=== PATIENT | female | born 1980 | race Caucasian/White ===

== ENCOUNTER 2019-03-20 14:49 | Inpatient (IN) ==
[2019-03-20] MEDS ORDERED: OXYTOCIN 30 UNITS/500 ML BAG IV PRN (15:05)
[2019-03-20 15:30] LABS: Hematocrit (blood only) 36.8 % (37-47); Hemoglobin 12.3 g/dL (12.0-16.0); Mean Corpuscular Hemoglobin 31.8 pg (25-34); Mean Corpuscular Volume 95.1 fL (80-100); Mean Platelet Volume 10.4 fL (7.4-10.4); Platelet Count 242 K/uL (130-400); RDW Coefficient of Variation 14.2 % (11.5-14.5); RDW Standard Deviation 48.9 fL (36.4-46.3); Red Blood Count 3.87 M/uL (4.2-5.4); White Blood Count 14.48 K/uL (4.8-10.8)
[2019-03-20 16:18] LABS: Mean Corpuscular Hgb Conc 33.4 g/dL (32-36)
--- NOTE | 2019-03-20 19:16 | Labor Progress Brief Note ---
Date of Service March 20, 2019 Patient still not overly uncomfortable. She does not wish intervention at this time. More likely in latent phase labor right now, but CTX seem to be worsening, so will admit. Results & Data Vital Signs (Past 12 Hours) Vital Signs Temp Pulse Resp BP 03/20/19 18:45 20 03/20/19 17:15 18 03/20/19 15:30 20 03/20/19 15:11 98.1 F 20 03/20/19 14:55 118 H 125/85
--- NOTE | 2019-03-20 21:27 | Labor Progress Brief Note ---
Date of Service March 20, 2019 Contractions have not really increased even spaced a bit. Cx remains at 4cm, membranes intact. I am not convinced she is really in active labor at this time yet. I have offered her: 1. Home and come back when CTX stronger. 2. Stay here with the idea she is currently in latent phase labor, possibly progressing to active labor. She prefers no intervention at this time. Wishes to stay at this time. Results & Data Vital Signs (Past 12 Hours) Vital Signs Temp Pulse Resp BP Pulse Ox 03/20/19 21:00 20 03/20/19 20:58 122 H 98 03/20/19 20:53 122 H 98 03/20/19 20:48 124 H 97 03/20/19 20:43 124 H 98 03/20/19 20:38 118 H 98 03/20/19 20:30 22 03/20/19 20:15 20 03/20/19 19:55 120 H 120/72 03/20/19 19:45 97.7 F 03/20/19 18:45 20 03/20/19 17:15 18 03/20/19 15:30 20 03/20/19 15:11 98.1 F 20 03/20/19 14:55 118 H 125/85
[2019-03-21] MEDS: LACTATED RINGER'S 1,000 ML IV PRN ×4 (05:33→16:56)
[2019-03-21] MEDS ORDERED: BUPIVACAINE 0.25% 30 ML VIAL ONE ×2 (05:49→13:48)
[2019-03-21] MEDS ORDERED: ePHEDrine sulfate 50 MG/ML AMP ONE (05:49)
[2019-03-21] MEDS ORDERED: fentaNYL 2MCG/ML ROPIV 1.25MG/ML 100 ML BAG EPI ONE (05:49)
[2019-03-21] MEDS ORDERED: fentaNYL citrate 100 MCG/2 ML VIAL ONE ×2 (05:49→13:48)
[2019-03-21] MEDS ORDERED: ePHEDrine sulfate 50 MG/ML AMP IV PRN (06:35)
[2019-03-21] MEDS ORDERED: NALBUPHINE HCL INJ 10 MG/ML AMP IV PRN (06:35)
[2019-03-21] MEDS ORDERED: DiphenhydrAMINE HCL 50 MG/ML VIAL IV PRN (06:35)
[2019-03-21] MEDS ORDERED: NALOXONE HCL 0.4 MG/1 ML VIAL/CARP IV PRN (06:35)
[2019-03-21] MEDS ORDERED: PROMETHAZINE HCL 6.25 MG in SODIUM CHLORIDE 0.9% 50 ML IV PRN (06:35)
[2019-03-21] MEDS ORDERED: NALOXONE HCL 1 MG in SODIUM CHLORIDE 0.9% 1000ML 1,000 ML IV PRN (06:35)
[2019-03-21] MEDS ORDERED: ONDANSETRON INJ 2 MG/ML 2 ML VIAL IV PRN (06:35)
--- NOTE | 2019-03-21 06:41 | Anesthesiology Consultation ---
Date of Service March 21, 2019 Assessment & Plan (1) Encounter for pre-operative examination: Chart Review Chart Review: Patient NOT seen in Pre Admission Testing and Acceptable Risk for Labor Epidural Consults Requested none ASA ASA2 Proposed Anesthesia Anesthesia Type: Labor Epidural Risk / Benefits Reviewed With: PT / POA / Parent / Guardian, Accepts Plan and Informed Consent Obtained History Height/Weight Height: 5 ft 3 in Weight: 92.079 kg Allergies Allergy/AdvReac Type Severity Reaction Status Date / Time codeine Allergy Verified 03/20/19 14:04 Penicillins Allergy Verified 03/20/19 14:04 Medications Home Medications Medication Instructions Recorded Confirmed Last Taken ferrous sulfate 140 mg PO DAILY 03/20/19 03/20/19 1 Day Ago ~03/19/19 vit-iron fum-folic ac 1 tab PO DAILY 03/20/19 03/20/19 1 Day Ago [ Vitamin] ~03/19/19 Active Medications Generic Name Dose Route Start Last Admin Trade Name Freq PRN Reason Stop Dose Admin Lactated Ringer's 1,000 mls @ 125 mls/hr 03/20/19 15:05 03/21/19 06:35 Lr IV 03/22/19 15:04 125 mls/hr .Q8H PRN Infusion L&D Protocol Protocol NPO Date Last Intake of Fluids: 03/21/19 Time Last Intake of Fluids: 06:00 Date Last Intake of Solids: 03/20/19 Time Last Intake of Solids: 17:00 Past Medical History Medical History Varicella Exercise / Class Metabolic Activity II 4-5 Yardwork/Stairs/Walk up hill Past Family History Family History Mother Depression Dyslipidemia Father AA (alcohol abuse) Grandfather Colorectal cancer Parkinsons Dementia Sister Multiple gestation Past Surgical History Surgical History H/O exploratory laparotomy History of carpal tunnel surgery Gans teeth extracted Past Anesthesia History No Hx of Anesthesia Complications and No Family Hx of Anesthesia Complications History of PONV No Hx of PONV and No Hx of Motion Sickness Social History Smoking Status: Never smoker Hx Alcohol Use: Yes Hx Substance Use: No substance use type: does not use Physical Exam Vital Signs Last Vital Signs Temp 36.7 C 03/21/19 02:57 Pulse 100 H 03/21/19 06:39 Resp 16 03/21/19 06:36 BP 105/58 L 03/21/19 06:39 Pulse Ox 98 03/21/19 06:37 ENMT Mouth: no dentition abnormality Thyromental Distance: > or= 3.5 Finger Breadths Mallampati Class: II Neck normal visual inspection Respiratory normal respiratory effort Auscultation: lungs clear to auscultation bilaterally Cardiovascular Rate/Rhythm: regular rate and regular rhythm Psychiatric Orientation: alert Testing Laboratory Results 03/20/19 15:18
--- NOTE | 2019-03-21 07:58 | Labor Progress Brief Note ---
Date of Service March 21, 2019 Patient progressed to being painful enough that she requested epidural. FHR category 1. AROM for clearish fluid.Cx 4cm, 90%, -1 Start pitocin if CTX don't improve further Results & Data Vital Signs (Past 12 Hours) Vital Signs Temp Pulse Resp BP Pulse Ox 03/21/19 07:52 115 H 99 03/21/19 07:49 113 H 113/68 03/21/19 07:47 124 H 100 03/21/19 07:44 125 H 107/59 L 03/21/19 07:43 114 H 94 03/21/19 07:42 119 H 97 03/21/19 07:40 111 H 112/65 03/21/19 07:38 118 H 94 03/21/19 07:37 117 H 95 03/21/19 07:34 116 H 116/65 03/21/19 07:32 114 H 95 03/21/19 07:29 117 H 20 112/61 03/21/19 07:27 115 H 95 03/21/19 07:24 118 H 116/60 03/21/19 07:22 120 H 98 03/21/19 07:19 112 H 120/66 03/21/19 07:17 121 H 100 03/21/19 07:15 116 H 118/69 03/21/19 07:12 109 H 98 03/21/19 07:09 130 H 94/60 L 03/21/19 07:07 121 H 99 03/21/19 07:04 97.7 F 123 H 18 99/54 L 03/21/19 07:02 111 H 98 03/21/19 06:59 114 H 98/54 L 03/21/19 06:57 107 H 97 03/21/19 06:56 113 H 106/60 03/21/19 06:52 140 H 100 03/21/19 06:50 115 H 105/57 L 03/21/19 06:47 123 H 98 03/21/19 06:45 113 H 16 109/76 03/21/19 06:42 118 H 99 03/21/19 06:39 100 H 105/58 L 03/21/19 06:37 118 H 98 03/21/19 06:36 116 H 16 103/58 L 03/21/19 06:33 111 H 97/55 L 03/21/19 06:32 117 H 99 03/21/19 06:30 109 H 16 108/53 L 03/21/19 06:27 116 H 101/54 L 98 03/21/19 06:24 102 H 18 126/66 03/21/19 06:22 117 H 98 03/21/19 06:17 106 H 99 03/21/19 06:12 114 H 98 03/21/19 06:07 112 H 98 03/21/19 06:02 119 H 99 03/21/19 05:46 102 H 99 03/21/19 05:43 103 H 104/58 L 03/21/19 05:41 98 H 99 03/21/19 05:39 118 H 81 L 03/21/19 04:33 132 H 79 L 03/21/19 02:59 102 H 103/62 03/21/19 02:57 98.1 F 16 03/20/19 22:51 98.1 F 99 H 16 110/60 03/20/19 21:30 18 03/20/19 21:00 20 03/20/19 20:58 122 H 98 03/20/19 20:53 122 H 98 03/20/19 20:48 124 H 97 03/20/19 20:43 124 H 98 03/20/19 20:38 118 H 98 03/20/19 20:30 22 03/20/19 20:15 20 03/20/19 19:55 120 H 120/72
[2019-03-21] MEDS ORDERED: OXYTOCIN 30 UNITS/500 ML BAG IV PRN ×2 (08:47→21:00)
--- NOTE | 2019-03-21 08:52 | Labor Progress Brief Note ---
Date of Service March 21, 2019 Subjective Reason For Note: Routine Evaluation Comfortable with Epidural. Discussed contraction pattern still fairly far apart after AROM, and discussed use of pitocin. Patient agreeable. Assessment & Plan (1) Supervision of elderly primigravida: Patient admitted yesterday in early labor but has had very slow progress, declined interventions yesterday. Now has epidural, accepted AROM, and accepts pitocin. Order placed and RN aware. Trimester: third trimester Qualified Code(s): O09.513 - Supervision of elderly primigravida, third trimester Present on Admission?: Yes Physical Exam Physical Exam: FHT Cat 1 with early decels noted at each contraction since AROM. [place] Q5-6. Cervix per prior MD still 4cm. Results & Data Vital Signs (Past 12 Hours) Vital Signs Temp Pulse Resp BP Pulse Ox 03/21/19 08:47 127 H 99 03/21/19 08:44 118 H 110/72 03/21/19 08:42 118 H 100 03/21/19 08:41 111 H 106/72 03/21/19 08:37 118 H 97 03/21/19 08:35 115 H 106/69 03/21/19 08:33 120 H 91 03/21/19 08:32 122 H 100 03/21/19 08:29 113 H 120/75 03/21/19 08:27 118 H 100 03/21/19 08:25 106 H 111/74 03/21/19 08:22 110 H 100 03/21/19 08:19 107 H 110/71 93 03/21/19 08:17 111 H 100 03/21/19 08:14 112 H 109/70 03/21/19 08:12 112 H 100 03/21/19 08:11 112 H 116/73 03/21/19 08:07 122 H 100 03/21/19 08:04 116 H 110/69 03/21/19 08:02 105 H 100 03/21/19 07:59 126 H 105/67 03/21/19 07:57 126 H 100 03/21/19 07:55 125 H 131/70 03/21/19 07:52 115 H 99 03/21/19 07:49 113 H 113/68 03/21/19 07:47 98.1 F 124 H 16 100 03/21/19 07:44 125 H 107/59 L 11/26/19 07:43 114 H 94 03/21/19 07:42 119 H 97 03/21/19 07:40 111 H 112/65 03/21/19 07:38 118 H 94 03/21/19 07:37 117 H 95 03/21/19 07:34 116 H 116/65 03/21/19 07:32 114 H 95 03/21/19 07:29 117 H 20 112/61 03/21/19 07:27 115 H 95 03/21/19 07:24 118 H 116/60 03/21/19 07:22 120 H 98 03/21/19 07:19 112 H 120/66 03/21/19 07:17 121 H 100 03/21/19 07:15 116 H 118/69 03/21/19 07:12 109 H 98 03/21/19 07:09 130 H 94/60 L 03/21/19 07:07 121 H 99 03/21/19 07:04 97.7 F 123 H 18 99/54 L 03/21/19 07:02 111 H 98 03/21/19 06:59 114 H 98/54 L 03/21/19 06:57 107 H 97 03/21/19 06:56 113 H 106/60 03/21/19 06:52 140 H 100 03/21/19 06:50 115 H 105/57 L 03/21/19 06:47 123 H 98 03/21/19 06:45 113 H 16 109/76 03/21/19 06:42 118 H 99 03/21/19 06:39 100 H 105/58 L 03/21/19 06:37 118 H 98 03/21/19 06:36 116 H 16 103/58 L 03/21/19 06:33 111 H 97/55 L 03/21/19 06:32 117 H 99 03/21/19 06:30 109 H 16 108/53 L 03/21/19 06:27 116 H 101/54 L 98 03/21/19 06:24 102 H 18 126/66 03/21/19 06:22 117 H 98 03/21/19 06:17 106 H 99 03/21/19 06:12 114 H 98 03/21/19 06:07 112 H 98 03/21/19 06:02 119 H 99 03/21/19 05:46 102 H 99 03/21/19 05:43 103 H 104/58 L 03/21/19 05:41 98 H 99 03/21/19 05:39 118 H 81 L 03/21/19 04:33 132 H 79 L 03/21/19 02:59 102 H 103/62 03/21/19 02:57 98.1 F 16 03/20/19 22:51 98.1 F 99 H 16 110/60 03/20/19 21:30 18 03/20/19 21:00 20 03/20/19 20:58 122 H 98 03/20/19 20:53 122 H 98
[2019-03-21] MEDS: fentaNYL 2MCG/ML ROPIV 1.25MG/ML 100 ML BAG EPI PRN ×2 (12:38→18:15)
--- NOTE | 2019-03-21 17:57 | Labor Progress Brief Note ---
Date of Service March 21, 2019 Subjective Very uncomfortable with contractions causing low back/pelvic pain and urge to push. Assessment & Plan (1) Supervision of elderly primigravida: Labor continues, with augmentation. Has been at 9+ cm for several hours. No labial edema, but I shared my concern at this point for CPD given the slow progress and failure to reach complete dilation. IUPC placed to see if MVU need to be increased, but initial impression is that we are likely adequate based on first few contractions being 50 MVU each. Patient will sit more upright and see if can help the anterior lip go away. She does not want to change plan to CSec at this time. Trimester: third trimester Qualified Code(s): O09.513 - Supervision of elderly primigravida, third trimester Physical Exam Physical Exam: Cervix with wisp of anterior lip at 12-3 o'clock and posterior at 6 o'clock as well. Vertex feels round, no molding or caput, and OA. FHT Cat 1 [place] Q2-5 irregular at times. Continues to have maternal tachycardia throughout whole admission, felt to be related to bronchitis patient had prior to admission. She is not SOB, sats are good, no chest pain. Tried two test-pushes to see if patient could push vertex past lip, and though she can push past it, cervix immediately falls forward once push effort ceases. IUPC placed after patient consented for same. Results & Data Vital Signs (Past 12 Hours) Vital Signs Temp Pulse Resp BP Pulse Ox 03/21/19 17:47 130 H 100 03/21/19 17:42 127 H 100 03/21/19 17:41 116 H 112/68 03/21/19 17:37 144 H 98 03/21/19 17:32 125 H 100 03/21/19 17:28 111 H 89 L 03/21/19 17:27 115 H 100 03/21/19 17:25 105 H 108/60 03/21/19 17:22 118 H 100 03/21/19 17:17 113 H 100 03/21/19 17:12 105 H 100 03/21/19 17:11 111 H 112/64 03/21/19 17:07 113 H 98 03/21/19 17:02 111 H 100 03/21/19 16:57 113 H 100 03/21/19 16:56 118 H 100/57 L 03/21/19 16:52 117 H 100 03/21/19 16:47 115 H 100 03/21/19 16:42 116 H 100 03/21/19 16:41 113 H 107/55 L 03/21/19 16:37 131 H 100 03/21/19 16:32 125 H 100 03/21/19 16:30 20 03/21/19 16:27 124 H 100 03/21/19 16:26 129 H 124/75 03/21/19 16:22 124 H 100 03/21/19 16:17 125 H 100 03/21/19 16:12 122 H 98 03/21/19 16:11 123 H 121/66 03/21/19 16:07 121 H 99 03/21/19 16:02 123 H 100 03/21/19 15:57 123 H 100 03/21/19 15:56 111 H 135/68 03/21/19 15:52 119 H 100 03/21/19 15:47 120 H 100 03/21/19 15:42 113 H 120/66 100 03/21/19 15:37 121 H 97 03/21/19 15:32 116 H 95 03/21/19 15:30 20 03/21/19 15:27 115 H 96 03/21/19 15:26 117 H 105/57 L 03/21/19 15:22 115 H 96 03/21/19 15:17 120 H 97 03/21/19 15:12 114 H 97 03/21/19 15:10 116 H 99/55 L 03/21/19 15:07 106 H 98 03/21/19 15:02 111 H 99 03/21/19 14:58 97.9 F 20 03/21/19 14:57 118 H 99 03/21/19 14:55 127 H 102/65 03/21/19 14:52 124 H 100 03/21/19 14:50 127 H 107/66 03/21/19 14:47 137 H 99 03/21/19 14:42 135 H 113/61 99 03/21/19 14:37 112 H 98 03/21/19 14:32 120 H 98 03/21/19 14:27 120 H 111/68 98 03/21/19 14:22 124 H 100 03/21/19 14:17 122 H 100 03/21/19 14:12 121 H 100 03/21/19 14:10 118 H 18 118/59 L 03/21/19 14:07 135 H 100 03/21/19 14:02 121 H 100 03/21/19 13:57 124 H 100 03/21/19 13:56 114 H 106/64 03/21/19 13:52 119 H 100 03/21/19 13:47 125 H 100 03/21/19 13:42 119 H 100 03/21/19 13:40 111 H 120/75 03/21/19 13:37 128 H 100 03/21/19 13:32 127 H 100 03/21/19 13:27 124 H 100 03/21/19 13:25 125 H 116/54 L 03/21/19 13:22 127 H 100 03/21/19 13:17 128 H 100 03/21/19 13:13 126 H 135/79 03/21/19 13:12 123 H 98 03/21/19 13:07 111 H 100 03/21/19 13:02 114 H 100 03/21/19 12:57 118 H 130/58 L 100 03/21/19 12:52 121 H 100 03/21/19 12:48 97.9 F 16 03/21/19 12:47 123 H 99 03/21/19 12:42 94 H 108/59 L 100 03/21/19 12:37 102 H 100 03/21/19 12:32 109 H 100 03/21/19 12:27 103 H 100 03/21/19 12:25 107 H 109/61 03/21/19 12:22 97 H 100 03/21/19 12:17 120 H 100 03/21/19 12:12 93 H 99 03/21/19 12:11 106 H 108/56 L 03/21/19 12:07 89 99 03/21/19 12:02 104 H 98 03/21/19 11:57 116 H 98 03/21/19 11:56 110 H 20 111/58 L 03/21/19 11:52 104 H 99 03/21/19 11:47 129 H 98 03/21/19 11:42 120 H 98 03/21/19 11:41 104 H 109/55 L 03/21/19 11:37 107 H 97 03/21/19 11:32 109 H 97 03/21/19 11:30 18 03/21/19 11:27 96 H 97 03/21/19 11:25 117 H 95/57 L 03/21/19 11:22 100 H 98 03/21/19 11:17 120 H 97 03/21/19 11:12 106 H 98 03/21/19 11:10 114 H 92/55 L 03/21/19 11:07 114 H 98 03/21/19 11:02 115 H 96 03/21/19 11:00 98.1 F 20 03/21/19 10:57 122 H 98 03/21/19 10:55 121 H 110/68 03/21/19 10:52 116 H 100 03/21/19 10:47 132 H 99 03/21/19 10:42 114 H 100 03/21/19 10:41 129 H 126/67 03/21/19 10:37 136 H 100 03/21/19 10:32 116 H 99 03/21/19 10:27 120 H 100 03/21/19 10:26 125 H 20 112/66 03/21/19 10:23 18 03/21/19 10:22 133 H 100 03/21/19 10:17 123 H 100 03/21/19 10:12 120 H 100 03/21/19 10:11 129 H 120/70 03/21/19 10:07 124 H 100 03/21/19 10:02 107 H 100 03/21/19 09:57 127 H 100 03/21/19 09:56 117 H 118/56 L 03/21/19 09:52 115 H 100 03/21/19 09:47 109 H 100 03/21/19 09:42 105 H 100 03/21/19 09:41 97.7 F 93 H 20 105/57 L 03/21/19 09:37 100 H 100 03/21/19 09:32 103 H 99 03/21/19 09:30 20 03/21/19 09:27 100 H 99 03/21/19 09:25 109 H 127/91 03/21/19 09:22 95 H 99 03/21/19 09:19 110 H 91/53 L 03/21/19 09:17 108 H 99 03/21/19 09:15 106 H 100/61 11/26/19 09:12 99 H 100 03/21/19 09:09 109 H 114/70 03/21/19 09:07 104 H 100 03/21/19 09:04 111 H 110/69 03/21/19 09:02 98 H 99 03/21/19 08:59 116 H 20 110/68 03/21/19 08:57 114 H 99 03/21/19 08:54 121 H 107/70 03/21/19 08:52 121 H 97 03/21/19 08:49 120 H 110/72 03/21/19 08:47 127 H 99 03/21/19 08:44 118 H 110/72 03/21/19 08:42 118 H 100 03/21/19 08:41 111 H 106/72 03/21/19 08:37 118 H 97 03/21/19 08:35 115 H 106/69 03/21/19 08:33 120 H 91 03/21/19 08:32 122 H 100 03/21/19 08:29 113 H 20 120/75 03/21/19 08:27 118 H 100 03/21/19 08:25 106 H 111/74 03/21/19 08:22 110 H 100 03/21/19 08:19 107 H 110/71 93 03/21/19 08:17 111 H 100 03/21/19 08:14 112 H 109/70 03/21/19 08:12 112 H 100 03/21/19 08:11 112 H 116/73 03/21/19 08:07 122 H 100 03/21/19 08:04 116 H 18 110/69 03/21/19 08:02 105 H 100 03/21/19 07:59 126 H 105/67 03/21/19 07:57 126 H 100 03/21/19 07:55 125 H 131/70 03/21/19 07:52 115 H 99 03/21/19 07:49 113 H 113/68 03/21/19 07:47 98.1 F 124 H 16 100 03/21/19 07:44 125 H 107/59 L 03/21/19 07:43 114 H 94 03/21/19 07:42 119 H 97 03/21/19 07:40 111 H 112/65 03/21/19 07:38 118 H 94 03/21/19 07:37 117 H 95 03/21/19 07:34 116 H 116/65 03/21/19 07:32 114 H 95 03/21/19 07:29 117 H 20 112/61 03/21/19 07:27 115 H 95 03/21/19 07:24 118 H 116/60 03/21/19 07:22 120 H 98 03/21/19 07:19 112 H 120/66 03/21/19 07:17 121 H 100 03/21/19 07:15 116 H 118/69 03/21/19 07:12 109 H 98 03/21/19 07:09 130 H 94/60 L 03/21/19 07:07 121 H 99 03/21/19 07:04 97.7 F 123 H 18 99/54 L 03/21/19 07:02 111 H 98 03/21/19 06:59 114 H 98/54 L 03/21/19 06:57 107 H 97 03/21/19 06:56 113 H 106/60 03/21/19 06:52 140 H 100 03/21/19 06:50 115 H 105/57 L 03/21/19 06:47 123 H 98 03/21/19 06:45 113 H 16 109/76 03/21/19 06:42 118 H 99 03/21/19 06:39 100 H 105/58 L 03/21/19 06:37 118 H 98 03/21/19 06:36 116 H 16 103/58 L 03/21/19 06:33 111 H 97/55 L 03/21/19 06:32 117 H 99 03/21/19 06:30 109 H 16 108/53 L 03/21/19 06:27 116 H 101/54 L 98 03/21/19 06:24 102 H 18 126/66 03/21/19 06:22 117 H 98 03/21/19 06:17 106 H 99 03/21/19 06:12 114 H 98 03/21/19 06:07 112 H 98 03/21/19 06:02 119 H 99
[2019-03-21] MEDS ORDERED: Nursing to Pharmacy Communication ONE (18:23)
--- NOTE | 2019-03-21 20:52 | Delivery Summary ---
Vaginal Delivery Summary Date of Service March 21, 2019 Vaginal Delivery Summary DIAGNOSES: 1. [place] intrauterine at 39w3d gestation. 2. Spontaneous onset of labor. 3. Group B Streptococcus Neg. PROCEDURE: Spontaneous vaginal delivery. SURGEON: Wendy Gallardo MD. MANAGER ADULT: None. ESTIMATED BLOOD LOSS: 350 mL. COMPLICATIONS: None. PLACENTA: Spontaneous and intact with a 3-vessel cord. DISPOSITION: Stable to labor and delivery. DESCRIPTION: The patient pushed well and brought the head to in OA position. The 's head was allowed to deliver with contraction force and no further active pushing, with the perineum protected during this time. The shoulders delivered easily with a maternal pushing effort. There was no nuchal cord. The shoulders and body delivered without any difficulty, and the infant was placed on the maternal abdomen. It was vigorous and moving all extremities, and making respiratory efforts. The cord was doubly clamped by the MD and then cut. The placenta delivered spontaneously and was noted to be intact and with a 3VC. The cervix, vagina and perineum were examined and were found to be without defect requiring repair. The fundus was firm and lochia minimal immediately after delivery.
[2019-03-21] MEDS ORDERED: SUPERCREAM 0.870% 15 GM JAR EXT PRN (21:00)
[2019-03-21] MEDS ORDERED: DIPHTHERIA/TETANUS/PERTUSSIS 0.5 ML SYR/VIAL IM ONE (21:00)
[2019-03-21] MEDS ORDERED: HYDROCORTISONE ACETATE 25 MG SUPP PR PRN (21:00)
[2019-03-21] MEDS ORDERED: BENZOCAINE 20% AER SPR 82.5 GM CAN EXT PRN (21:00)
[2019-03-21] MEDS ORDERED: LACTATED RINGER'S 1,000 ML IV SCH (21:00)
[2019-03-21] MEDS ORDERED: ACETAMINOPHEN 325 MG TAB PO PRN (21:00)
[2019-03-21] MEDS ORDERED: OXYCODONE/ACETAMINOPHEN 5mg/325mg TAB PO PRN (21:00)
--- NOTE | 2019-03-21 21:10 | Anesthesia Procedure Note ---
Date of Service March 21, 2019 Anesthesia Post Epidural Note Vital Signs Vital Signs: Temp Pulse Resp BP Pulse Ox 36.7 C 126 H 18 127/72 100 03/21/19 20:21 03/21/19 21:07 03/21/19 20:51 03/21/19 21:07 03/21/19 20:22 Pain Intensity Bilateral Lower Perineal: Pain Intensity: 4 Notes Mental Status: alert / awake / arousable Nausea / Vomiting: adequately controlled Pain: adequately controlled Airway Patency, RR, SpO2: stable & adequate BP & HR: stable & adequate Hydration State: stable & adequate Neuraxial Anesthesia: was administered and sensory block is resolving Anesthetic Complications: no major complications apparent Epidural: Removed without complications and With tip intact
[2019-03-21] MEDS: IBUPROFEN 600 MG TAB PO PRN (21:41)
[2019-03-21] MEDS: DOCUSATE SODIUM 100 MG CAP PO SCH (21:41)
--- NOTE | 2019-03-22 06:30 | Obstetrical Progress Note ---
Date of Service March 22, 2019 Assessment & Plan (1) Status post vaginal delivery: Cat is a 38yo on PPD 1 after at 39w - GBS -, Blood Type A+, Rubella immune -Vitals reviewed and WNL -patient is doing clinically well Continue routine post care - After discharge will have [address] Gallardo. Supervising Physician Co-Signing Physician Notes I have reviewed the resident's note and examined the patient myself, and agree with the note above. Subjective reports only minimal discomfort Ambulation: ambulating normally Voiding: no voiding problems Passing Gas:: Yes Diet Tolerance:: regular diet Lochia:: moderate Feeding Type:: breast feeding Review of Systems Constitutional: no fever, no chills and no sweats Eyes: no worsening vision Respiratory: no cough and no dyspnea Cardiovascular: no chest pain, no palpitations, no edema and no calf pain Gastrointestinal: no nausea and no vomiting Genitourinary: no dysuria and no urinary frequency Neurologic: no headache(s) Physical Exam Constitutional: WD/WN, vitals as above no acute distress Respiratory: normal respiratory effort, lungs clear to auscultation does not use accessory muscles Auscultation: no crackles, no rales, no rhonchi, no wheezes and no pleural rub Cardiovascular: Rate/Rhythm: regular rate and regular rhythm Heart Sounds: normal S1 and normal S2; no gallop, no murmur and no cardiac rub Extremities: no calf tenderness and no pedal edema Gastrointestinal (Abdomen): Inspection/Auscultation: normal bowel sounds; abdomen not distended Percussion/Palpation: abdomen soft Genitourinary: Uterus: fundus firm, palpable 1 cm below the umbilicus Results & Data Vital Signs (Past 12 Hours) Vital Signs Temp Pulse Pulse Resp BP BP Pulse Ox 03/22/19 04:25 36.8 C 77 18 114/70 03/21/19 23:15 36.7 C 100 H 18 116/73 96 03/21/19 22:06 36.8 C 126 H 20 114/76 96 03/21/19 21:38 98 H 127/70 03/21/19 21:36 18 03/21/19 21:07 126 H 127/72 03/21/19 21:06 20 03/21/19 20:51 116 H 18 116/53 L 03/21/19 20:36 118 H 22 122/56 L 03/21/19 20:22 126 H 100 03/21/19 20:21 36.7 C 117 H 20 117/61 03/21/19 20:17 126 H 98 03/21/19 20:13 26 H 03/21/19 20:12 150 H 99 03/21/19 20:07 133 H 100 03/21/19 20:02 131 H 100 03/21/19 20:00 26 H 03/21/19 19:57 163 H 100 03/21/19 19:52 140 H 100 03/21/19 19:47 146 H 100 03/21/19 19:45 24 03/21/19 19:42 138 H 100 03/21/19 19:41 126 H 112/59 L 03/21/19 19:37 153 H 90 03/21/19 19:32 150 H 100 03/21/19 19:29 20 03/21/19 19:27 117 H 99 03/21/19 19:26 121 H 113/53 L 03/21/19 19:22 122 H 100 03/21/19 19:17 123 H 100 03/21/19 19:12 120 H 100 03/21/19 19:10 122 H 110/56 L 03/21/19 19:07 119 H 100 03/21/19 19:02 128 H 99 03/21/19 19:00 22 03/21/19 18:57 122 H 99 03/21/19 18:55 118 H 100/56 L 03/21/19 18:52 128 H 100 03/21/19 18:47 130 H 98 03/21/19 18:42 130 H 100 03/21/19 18:40 125 H 120/71 03/21/19 18:37 128 H 98 03/21/19 18:32 125 H 99 Resident Activity Tracking Resident Involvement: Resident Care Provided Care Provided: OB Delivery
[2019-03-22 06:38] LABS: Hematocrit (blood only) 29.4 % (37-47); Hemoglobin 9.8 g/dL (12.0-16.0); Mean Corpuscular Hemoglobin 31.6 pg (25-34); Mean Corpuscular Hgb Conc 33.3 g/dL (32-36); Mean Corpuscular Volume 94.8 fL (80-100); Mean Platelet Volume 10.6 fL (7.4-10.4); Platelet Count 182 K/uL (130-400); RDW Coefficient of Variation 14.3 % (11.5-14.5); RDW Standard Deviation 49.2 fL (36.4-46.3)
[2019-03-22] MEDS: PRENATAL VITAMIN 1 TAB PO SCH (08:10)
[2019-03-22] MEDS: IBUPROFEN 600 MG TAB PO PRN ×2 (08:10→23:59)
[2019-03-22] MEDS: DOCUSATE SODIUM 100 MG CAP PO SCH ×2 (08:10→20:49)
[2019-03-22] MEDS: FERROUS SULFATE 325 MG TAB PO SCH (08:10)
--- NOTE | 2019-03-23 06:14 | Obstetrical Progress Note ---
Date of Service March 23, 2019 Assessment & Plan (1) Status post vaginal delivery: Cat is a 38yo on PPD 2 after at 39w - GBS -, Blood Type A+, Rubella immune -Vitals reviewed and WNL -patient is doing clinically well discharge instructions reviewed - After discharge will have [address] Gallardo. Supervising Physician Co-Signing Physician Notes Resident Physician Supervision Note: I interviewed and examined the patient. Discussed with Dr. Vaca and agree with findings and plan as documented in the note. Any exceptions or clarifications are listed here: [None] Documented By: Aileen Moore MD, FACOG Subjective Ambulation: ambulating normally Voiding: no voiding problems Passing Gas:: Yes Diet Tolerance:: regular diet Lochia:: mild Feeding Type:: breast feeding Review of Systems Constitutional: no fever, no chills and no sweats Eyes: no worsening vision Respiratory: no cough and no dyspnea Cardiovascular: no chest pain, no palpitations, no edema and no calf pain Gastrointestinal: no nausea and no vomiting Genitourinary: no dysuria and no urinary frequency Neurologic: no headache(s) Physical Exam Constitutional: WD/WN, vitals as above no acute distress Respiratory: normal respiratory effort, lungs clear to auscultation does not use accessory muscles Auscultation: no crackles, no rales, no rhonchi, no wheezes and no pleural rub Cardiovascular: Rate/Rhythm: regular rate and regular rhythm Heart Sounds: normal S1 and normal S2; no gallop, no murmur and no cardiac rub Extremities: no calf tenderness and no pedal edema Gastrointestinal (Abdomen): Inspection/Auscultation: normal bowel sounds; abdomen not distended Percussion/Palpation: abdomen soft Genitourinary: Uterus: fundus firm, palpable 2 cm below the umbilicus Results & Data Vital Signs (Past 12 Hours) Vital Signs Temp Pulse Resp BP Pulse Ox 03/22/19 23:50 37.1 C 112 H 18 117/75 95 03/22/19 19:40 36.9 C 92 H 18 116/72 97 Resident Activity Tracking Resident Involvement: Resident Care Provided Care Provided: OB Delivery
[2019-03-23 07:36] LABS: Hematocrit (blood only) 30.1 % (37-47)
[2019-03-23] MEDS: PRENATAL VITAMIN 1 TAB PO SCH (07:52)
[2019-03-23] MEDS: FERROUS SULFATE 325 MG TAB PO SCH (07:52)
[2019-03-23] MEDS: DOCUSATE SODIUM 100 MG CAP PO SCH (07:52)
== END 2019-03-23 12:10 | disposition home or self-care (01) | DRG 807 ==
LOC: OPB 14:49 → 4S1 14:52 → 4S2 03-21 22:30